=== PATIENT | female | born 1980 | race Asian ===

== ENCOUNTER 2021-08-14 21:28 | Emergency (ER) | payer OTHER ==
[2021-08-14 21:39] VITALS: BP 139/84
--- NOTE | 2021-08-14 21:48 | ED Physician Documentation ---
History of Present Illness - Stated complaint Stated Complaint: POST OP DISCHARGE-BELLY BUTTON - Chief complaint Chief Complaint: General - Additonal information Additional information: 40-year-old female presents the emergency department for evaluation of umbilicus discharge and discomfort. She underwent a laparoscopic cholecystectomy on 07/17/2021. This was completed at [facility]. She had been recovering uneventfully and had follow-up appointment on the with no worrisome findings found. She reports that 3 days ago she began feeling some itchiness within her bellybutton. She did remove a small scab and today she has noticed some purulent discharge. She applied rubbing alcohol to her umbilicus. She has some mild discomfort. No fevers no nausea or vomiting. She is eating and drinking well. Normal bowel movements. Review of Systems Constitutional: denies: Fever, Chills Eyes: reports: Reviewed and negative Ears: reports: Reviewed and negative Nose: reports: Reviewed and negative Throat: reports: Reviewed and negative Cardiac: reports: Reviewed and negative Respiratory: reports: Reviewed and negative GI: denies: Abdominal Pain, Vomiting : reports: Reviewed and negative Skin: reports: Lesions PD PAST MEDICAL HISTORY - Present Medications Home Medications: Ambulatory Orders Medication Instructions Recorded Confirmed Mupirocin 2% Oint [Bactroban 2% 1 applic TOP BID #22 gm 08/14/21 Oint] Sulfamethox/Trimeth 800/160 1 each PO BID #14 tablet 08/14/21 [Bactrim Ds 800/160] - Allergies Allergies/Adverse Reactions: Allergies Allergy/AdvReac Type Severity Reaction Status Date / Time No Known Drug Allergies Allergy Verified 08/14/21 21:39 PD ED PE EXPANDED - General General: Alert, No acute distress - Cardiac Cardiac: Regular Rate, Radial strong equal, Pedal strong equal, Cap refill < 2 sec - Respiratory Respiratory: Clear to ausultation saleem. No: Distress - Abdomen Abdomen: Normal Bowel sounds, Periumbilical (Scant amount of mucopurulent drainage seen within the umbilicus. No surrounding erythema or induration.), Surgical scars (Well-healed laparoscopic cholecystectomy scars.). No: Tender to palpation (I am unable to elicit any abdominal tenderness on exam) Results - Vitals Vitals: Vital Signs - 24 hr 08/14/21 21:33 Temperature 98.2 C H Heart Rate 89 Respiratory 16 Rate Blood Pressure 139/84 H O2 Saturation 95 Oxygen O2 Source Room air - Labs Labs: Laboratory Tests 08/14/21 21:50 WBC 9.6 RBC 5.25 Hgb 13.9 Hct 43.8 MCV 83.4 MCH 26.5 L MCHC 31.7 L RDW 13.2 Plt Count 285 MPV 9.6 Neut # (Auto) 5.8 Lymph # (Auto) 2.7 [place] # (Auto) 0.5 Eos # (Auto) 0.5 Baso # (Auto) 0.1 Absolute Nucleated RBC 0.00 Nucleated RBC % 0.0 PD MEDICAL DECISION MAKING - ED course Complexity details: reviewed results, re-evaluated patient, d/w patient ED course: This is a very well-appearing 40-year-old female who presents emergency dep artment for evaluation of umbilicus discharge after a recent lap vivek 07/17/2021 at [facility]. 3 days ago she noted some itchiness in the bellybutton and removed a small scab and today she had some mucopurulent drainage. There is no surrounding erythema no tenderness was elicited on abdominal exam. No hernia appreciated. screening CBC unemarkable. I spoke with the surgeon who did her operation Dr. Amaya, We discussed her exam findings and CBC. He would recommend instituting Bactrim as well as mupirocin ointment. He would like the patient followed up early this upcoming week. He would not recommend any advanced imaging at this time as no abdominal tenderness was elicited. likely represents a superficial umbilicus infection. This plan was discussed with the patient and she is in agreement. Emergent return precautions were otherwise discussed. Departure - Departure Disposition: 01 Home, Self Care Clinical Impression: Umbilicus discharge, History of laparoscopic cholecystectomy Condition: Stable Record reviewed to determine appropriate education?: Yes Follow-Up: Zach Amaya MD [Physician No Access] - Prescriptions: Sulfamethox/Trimeth 800/160 [Bactrim Ds 800/160] 1 each PO BID #14 tablet Mupirocin 2% Oint [Bactroban 2% Oint] 1 applic TOP BID #22 gm Comments: You were seen today for a superficial infection in your bellybutton. This is at the site whereyou recently had gall bladder surgery. Your blood count today is normal. However it does look like you have a superficial skin infection. Please fill the prescription for the Bactrim begin taking twice daily for the next week. I also recommend that you gently cleanse your bellybutton with warm soap and water. Pat dry or air blow dry with a fine unhairer and then apply a thin amount of antibiotic ointment. I have prescribed mupirocin for this. Your surgeon would like you to call his office for follow-up on Tuesday. You may reach them at [phone]. If at any point you feel that you're having worsening symptoms, develop abdominal pain, fevers develop redness or swelling around your bellybutton then please return immediately to the ER though you may consider going to [facility] as they did do your surgery. Your prescriptions have been sent electronically to the [facility] in [place].
[2021-08-14 21:56] LABS: BASOPHILS # (AUTO) 0.1 10^3/uL (0.0-0.1); BASOPHILS % (AUTO) 0.6 %; EOSINOPHILS # (AUTO) 0.5 10^3/uL (0.0-0.7); EOSINOPHILS % (AUTO) 4.8 %; HCT - HEMATOCRIT 43.8 % (37.0-47.0); HGB - HEMOGLOBIN 13.9 g/dL (12.0-16.0); LYMPHOCYTES # (AUTO) 2.7 10^3/uL (1.5-3.5); LYMPHOCYTES % (AUTO) 28.3 %; MEAN CORPUSCULAR HEMOGLOBIN 26.5 pg (27.0-31.0); MEAN CORPUSCULAR HGB CONC 31.7 g/dL (32.0-36.0); MEAN CORPUSCULAR VOLUME 83.4 fL (81.0-99.0); MEAN PLATELET VOLUME 9.6 fL (7.9-10.8); MONOCYTES # (AUTO) 0.5 10^3/uL (0.0-1.0); MONOCYTES % (AUTO) 5.4 %; NEUTROPHILS # (AUTO) 5.8 10^3/uL (1.5-6.6); NEUTROPHILS % (AUTO) 60.7 %; PLT - PLATELET COUNT 285 10^3/uL (130-450); RED BLOOD COUNT 5.25 10^6/uL (4.20-5.40); RED CELL DISTRIBUTION WIDTH 13.2 % (12.0-15.0); WHITE BLOOD COUNT 9.6 x10^3/uL (4.8-10.8)
[2021-08-14] MEDS ORDERED: SULFAMETH/TRIMETH DS 800/160 MG TABLET PO STA (22:07)
== END 2021-08-14 22:16 | disposition home or self-care (01) ==
LOC: ED 21:28
DX: L08.9 Local infection of the skin and subcutaneous tissue, unspecified (principal); Z90.49 Acquired absence of other specified parts of digestive tract
CPT/HCPCS: 36415; 85025; 99283; A9270